=== PATIENT | female | born 2000 | race Caucasian/White ===

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

== ENCOUNTER 2021-11-21 18:49 | Emergency (ER) | payer BC ==
[~2021-11-21] VITALS: Ht 162.6 cm; Wt 81.8 kg
[2021-11-21 18:51] VITALS: BP 121/63
[2021-11-21] MEDS ORDERED: ACETAMINOPHEN 325 MG TAB PO ONE (19:05)
[2021-11-21 20:44] LABS: RSV AMPLIFICATION NEGATIVE (NEGATIVE)
== END 2021-11-21 22:20 | disposition home or self-care (01) ==
LOC: M ED 18:49
DX: U07.1 COVID-19 (principal); S09.90XA Unspecified injury of head, initial encounter; W01.0XXA Fall on same level from slipping, tripping and stumbling without subsequent striking against object, initial encounter; Y92.9 Unspecified place or not applicable; Y93.9 Activity, unspecified; Y99.9 Unspecified external cause status; G43.909 Migraine, unspecified, not intractable, without status migrainosus; E66.9 Obesity, unspecified; Z88.1 Allergy status to other antibiotic agents; Z91.012 Allergy to eggs; Z91.018 Allergy to other foods

== ENCOUNTER → 2024-11-04 | Outpatient (REF) | payer OTHER | LOC: M LAB REF 11:47 | PROVIDERS: ATTEND Student in an Organized Health Care Education/Training Program | DX: R30.0 Dysuria (principal) ==

== ENCOUNTER → 2024-11-06 | Outpatient (CLI) | payer OTHER | LOC: M RAD 15:57 | PROVIDERS: ATTEND Physician Assistant | DX: S43.432A Superior glenoid labrum lesion of left shoulder, initial encounter (principal); M25.412 Effusion, left shoulder; Y99.0 Civilian activity done for income or pay ==